=== PATIENT | female | born 1985 | race Caucasian/White ===

== ENCOUNTER 2019-06-24 15:04 | Emergency (ER) | payer OTHER ==
[~2019-06-24] VITALS: Ht 152.4 cm; Wt 64.3 kg
[2019-06-24 15:45] VITALS: BP 133/63
[2019-06-24] MEDS ORDERED: METHOCARBAMOL 750 MG TABLET ONE (15:58)
[2019-06-24] MEDS ORDERED: KETOROLAC 30 MG/1 ML ONE (15:58)
[2019-06-24] MEDS ORDERED: METHOCARBAMOL 750 MG TABLET PO ONE (16:00)
[2019-06-24] MEDS ORDERED: KETOROLAC 30 MG/1 ML IM ONE (16:00)
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
--- NOTE | 2019-06-24 16:14 | NUR ---
PT TO RADIOLOGY NOW.
[2019-06-24] MEDS ORDERED: HYDROcodone/APAP 5/325 TABLET ONE (17:16)
[2019-06-24] MEDS ORDERED: HYDROcodone/APAP 5/325 TABLET PO ONE (18:00)
== END 2019-06-24 18:13 | disposition home or self-care (01) ==
LOC: ED 17:30
DX: S73.101A Unspecified sprain of right hip, initial encounter (principal); S76.911A Strain of unspecified muscles, fascia and tendons at thigh level, right thigh, initial encounter; V49.49XA Driver injured in collision with other motor vehicles in traffic accident, initial encounter; Y93.89 Activity, other specified; Y92.410 Unspecified street and highway as the place of occurrence of the external cause; Y99.8 Other external cause status
CPT/HCPCS: 73130; 73502; 73552; 73590; 96372; 99284; J1885